=== PATIENT | female | born 1930 | race Caucasian/White ===

== ENCOUNTER 2020-08-29 15:21 | Emergency (ER) | payer MEDICARE ==
[2020-08-29 16:03] VITALS: BP 180/55; PULSE 62
--- NOTE | 2020-08-29 16:32 | CR ---
EXAMINATION: Chest 1V Frontal SEX: Female AGE: 89 years CLINICAL HISTORY: 89-year-old female chest pain. Lower lobes clear on CT upper abdomen 2015. Interpretation: 1. Dense curvilinear atheromatous calcifications (cast) arch of the aorta. Slight exaggeration left ventricle. 2. No sign of pulmonary vascular congestion, cephalization of flow, alveolar edema or pleural effusion. 3. No lung mass or hilar lymphadenopathy. 4. No focal lobar alveolar consolidation, atelectasis/collapse, air bronchograms, or peripheral "groundglass" interstitial lung densities. 5. No pneumothorax or pneumomediastinum. No air trapping or bullous emphysematous disease. CONCLUSION: No acute cardiopulmonary abnormality (AP CXR).
--- NOTE | 2020-08-29 16:39 | EDM.PDOC ---
ED HPI GENERAL MEDICAL PROBLEM - General Chief Complaint: Chest Pain Stated Complaint: CHEST PAIN Time Seen by Provider: 08/29/20 15:50 Source of Information: Reports: Patient, RN, RN Notes Reviewed History Limitations: Reports: No Limitations - History of Present Illness INITIAL COMMENTS - FREE TEXT/NARRATIVE: Patient presents to the ED via personal vehicle for complaints of chest pain. She states the pain began about 1.5 hours prior to her arrival to this facility. She is unable to characterize the pain but rates it at a 4/10. She does attest to experiencing this pain in the past but it has spontaneously resolved. She states she has not discussed this pain with her PCP and does not have a cardiac history. She denies recent illness, fever, shaking chills, shortness of breath, dyspepsia, nausea, or vomiting. She does attest to transient, infrequent palpitations. She takes HCTZ 25mg and Lisinopril 40mg for HTN and Crestor 5mg for hyperlipidemia. She denies ever receiving an TTE or a LYNDA. She denies tobacco or recreational drug use, but does attest to occasional social drinking with a last drink of tarik last evening. - Related Data Allergies Allergy/AdvReac Type Severity Reaction Status Date / Time ezetimibe [From Vytorin] Allergy Cannot Verified 08/29/20 15:45 Remember simvastatin Allergy Cannot Verified 08/29/20 15:45 Remember valdecoxib Allergy Cannot Verified 08/29/20 15:45 Remember Home Meds: Home Meds Omeprazole 1 tab PO DAILY 12/13/13 [History] Rosuvastatin [Crestor] 1 tab PO DAILY 12/13/13 [History] hydroCHLOROthiazide [Microzide] 25 mg PO DAILY 12/13/13 [History] timoloL maleate [Timoptic-XE 0.5% Ophth Gel] 1 drop EYERT BID 12/13/13 [History] traMADol [Ultram] 1 tab PO Q6H 12/13/13 [History] Aspirin [Halfprin] 1 tab PO DAILY 12/22/14 [History] Carboxymethylcellulos/Glycerin [Refresh Optive] 1 drop EYELF ASDIRECTED 12/22/14 [History] Cholecalciferol (Vitamin D3) [Vitamin D3] 1 tab PO DAILY 12/22/14 [History] Citalopram Hydrobromide [Celexa] 1 tab PO DAILY 12/22/14 [History] Clotrimazole/Betamethasone Dip [Lotrisone Cream] 1 squirt TOP ASDIRECTED 12/22/14 [History] Fish Oil/[place]-3 Fatty Acids [Fish Oil] 1 tab PO DAILY 12/22/14 [History] Naproxen Sodium 2 tab PO BID 12/22/14 [History] lisinopriL [Prinivil] 1 tab PO DAILY 12/22/14 [History] rOPINIRole HCl [Requip] 2 tab PO BEDTIME 12/22/14 [History] Past Medical History HEENT History: Reports: Glaucoma Cardiovascular History: Reports: High Cholesterol, Hypertension Respiratory History: Reports: None Gastrointestinal History: Reports: GERD Genitourinary History: Reports: None Neurological History: Reports: None Psychiatric History: Reports: None Endocrine/Metabolic History: Reports: None Dermatologic History: Reports: None Social & Family History - Tobacco Use Tobacco Use Status *Q: Never Tobacco User ED ROS GENERAL - Review of Systems Review Of Systems: Comprehensive ROS is negative, except as noted in HPI. ED EXAM, GENERAL - Physical Exam Exam: See Below Exam Limited By: No Limitations General Appearance: Alert, WD/WN, No Apparent Distress Eye Exam: Bilateral Eye: EOMI, Normal Inspection, PERRL (4mm) Nose: Normal Inspection, Normal Mucosa, No Blood Throat/Mouth: Normal Inspection, Normal Voice, No Airway Compromise. No: Normal Oropharynx (Dry mucous membranes) Head: Atraumatic, Normocephalic Neck: Normal Inspection, Supple, Non-Tender, Full Range of Motion Respiratory/Chest: No Accessory Muscle Use, Chest Non-Tender, Decreased Breath Sounds, Rales (To bilateral lower lobes). No: Crackles, Rhonchi, Wheezing, Stridor, Pleural Rub Cardiovascular: Regular Rate, Rhythm, No Edema, No Gallop, No JVD, No Murmur, No Rub, Systolic Murmur (5/6, loudest over the pulmonic area) Peripheral Pulses: 2+: Radial (L), Radial (R) GI/Abdominal: Normal Bowel Sounds, Soft, Non-Tender, No Distention, No Mass, Pelvis Stable (Female) Exam: Deferred Rectal (Female) Exam: Deferred Back Exam: Normal Inspection, Full Range of Motion Extremities: Normal Inspection, Normal Range of Motion, Non-Tender, No Pedal Edema, Normal Capillary Refill Neurological: Alert, Oriented, CN II-XII Intact, Normal Cognition, Normal Gait, No Motor/Sensory Deficits Psychiatric: Normal Affect, Normal Mood Skin Exam: Warm, Dry, Intact, Normal Color, No Rash. No: Ecchymosis, Erythema, Jaundice, Mottled, Pallor, Petechiae Course - Vital Signs Last Recorded V/S: Last Vital Signs Temp 98.6 F 08/29/20 15:34 Pulse 62 08/29/20 15:34 Resp 20 08/29/20 15:34 BP 180/55 H 08/29/20 15:34 Pulse Ox 96 08/29/20 15:34 - Orders/Labs/Meds Labs: Laboratory Tests 08/29/20 08/29/20 Range/Units 16:17 16:17 WBC 6.5 (5.0-10.0) 10^3/uL RBC 3.73 L (4.2-5.4) 10^6/uL Hgb 11.3 L (12.0-16.0) g/dL Hct 34.1 L (37.0-47.0) % MCV 91.4 (80-100) fL MCH 30.3 (27.0-34.0) pg MCHC 33.1 (33.0-35.0) g/dL Plt Count 316 (150-450) 10^3/uL Neut % (Auto) 60.4 (42.2-75.2) % Lymph % (Auto) 26.6 (20.5-50.1) % Emmet % (Auto) 7.8 (2-8) % Eos % (Auto) 3.7 H (1.0-3.0) % Baso % (Auto) 1.5 H (0.0-1.0) % Sodium 136 (136-145) mmol/L Potassium 4.2 (3.5-5.1) mmol/L Chloride 99 (98-107) mmol/L Carbon Dioxide 26 (21-32) mmol/L Anion Gap 15.2 H (7-13) mEq/L BUN 17 (7-18) mg/dL Creatinine 1.20 H (0.55-1.02) mg/dL Est Cr Clr Drug Dosing 23.98 mL/min Estimated GFR (MDRD) 42 BUN/Creatinine Ratio 14.2 (No establ ref range) Glucose 93 (74-99) mg/dL Calcium 8.7 (8.5-10.1) mg/dL Total Bilirubin 0.5 (0.2-1.0) mg/dL AST 21 (15-37) U/L ALT 28 (14-59) U/L Alkaline Phosphatase 54 (46-116) U/L Troponin I < 0.017 (0.000-0.056) ng/mL Total Protein 6.7 (6.4-8.2) g/dL Albumin 3.9 (3.4-5.0) g/dL Globulin 2.8 Albumin/Globulin Ratio 1.4 - Re-Assessments/Exams Free Text/Narrative Re-Assessment/Exam: 08/29/20 EKG NSR. CBC and CMP unremarkable for acute processes. Troponin negative. CXR unremarkable for acute processes. Findings discussed with patient and her who verbalized understanding. Discussed continued follow up with her PCP. Discussed use of Tylenol for pain management. Patient and verbalized understanding and agreement with the plan of care. Departure - Departure Time of Disposition: 17:23 Disposition: Home, Self-Care 01 Condition: Good Clinical Impression: Atypical chest pain, Heart murmur, systolic Instructions: Nonspecific Chest Pain, Adult, [id number] Referrals: PCP,None [Primary Care Provider] - Forms: ED Department Discharge Additional Instructions: 1.) Your cardiac workup today was negative for acute processes. 2.) Follow up with Dr. Jang by early next week for ongoing assessment of this pain. 3.) You may take acetaminophen (Tylenol) 650mg every six hours for chest wall pain. Sepsis Event Note (ED) - Evaluation Sepsis Screening Result: No Definite Risk
[2020-08-29 17:00] LABS: ANION GAP 15.2 mEq/L (7-13); CHLORIDE,CL 99 mmol/L (98-107); SODIUM,NA 136 mmol/L (136-145)
== END 2020-08-29 18:03 | disposition home or self-care (01) ==
LOC: DL.ED 15:21
DX: R07.89 Other chest pain (principal); R01.1 Cardiac murmur, unspecified; E78.00 Pure hypercholesterolemia, unspecified; I10 Essential (primary) hypertension; K21.9 Gastro-esophageal reflux disease without esophagitis; Z79.899 Other long term (current) drug therapy; Z79.82 Long term (current) use of aspirin; Z88.8 Allergy status to other drugs, medicaments and biological substances
CPT/HCPCS: 36415; 71045; 80053; 84484; 85025; 93005; 99285-25